=== PATIENT | male | born 1985 | race Caucasian/White ===

== ENCOUNTER 2021-09-13 00:05 | Emergency (ER) | payer OTHER ==
[2021-09-13] MEDS ORDERED: TORADOL 10 MG T10 MG PO (00:33)
== END 2021-09-13 00:58 | disposition home or self-care (01) ==
LOC: ER1 00:05
DX: R10.9 Unspecified abdominal pain (principal); R10.813 Right lower quadrant abdominal tenderness; R10.814 Left lower quadrant abdominal tenderness; E11.9 Type 2 diabetes mellitus without complications; Z88.8 Allergy status to other drugs, medicaments and biological substances; Z88.2 Allergy status to sulfonamides; Z88.1 Allergy status to other antibiotic agents
CPT/HCPCS: 96372; 99283; J1885

== ENCOUNTER 2021-09-13 08:48 | Inpatient (IN) | payer OTHER ==
[~2021-09-13] VITALS: Ht 182.9 cm; Wt 108.9 kg
[~2021-09-13 08:48] MED LIST: TORADOL 10 MG T10 MG PO
[2021-09-13 10:23] LABS: HEMOGLOBIN 12.9 gm/dl (14.0-17.5); RED BLOOD COUNT 4.38 M/UL (4.20-5.50); WHITE BLOOD COUNT 14.2 K/UL (4.5-11.0)
[2021-09-13 11:00] LABS: BUN/CREATININE RATIO 10 (0-10)
--- NOTE | 2021-09-14 17:16 | NUR ---
1715: NOTED UOP AT 125 (VOID) WITH IVF'S INFUSING AT 100 ML/HR. PATIENT DENIES ANY URGE TO VOID AT ALL. BLADDER SCAN PERFORMED WITH NO URINE NOTED IN URINARY BLADDER. DR LANGSTON UPDATED WITH NEW ORDER RECEIVED. NS BOLUS 1000ML OVER I HOUR TO INFUSE. WILL MONITOR FOR URINARY OUTPUT.
--- NOTE | 2021-09-15 09:06 | NUR ---
MULTIPLE ATTEMPTS TO CALL MRI FOR SCAN AT THIS TIME PER MD ORDER. NO ANSWER.
[2021-09-15] MEDS ORDERED: LOSARTAN POTASS25 MG PO (14:20)
[2021-09-15] MEDS ORDERED: IBUPROFEN PM C1 EACH PO (14:21)
[2021-09-15 15:20] LABS: HEMOGLOBIN 11.6 gm/dl (14.0-17.5); RED BLOOD COUNT 3.95 M/UL (4.20-5.50)
[2021-09-15 15:37] LABS: BUN/CREATININE RATIO 18 (0-10)
--- NOTE | 2021-09-15 20:46 | NUR ---
ON 09/13/21 WHEN PATIENT ARRIVED ON THE FLOOR, HE WAS VISIBLY UPSET AND ANXIOUS. PATIENT WALKED AND PACED THE HALLS THROUGHOUT THE ENTIRE NIGHT. PATIENT WOULD GO OUTSIDE MULTIPLE TIMES DURING THE NIGHT. WITNESSED BY ZAIN THURSTON AND LUCHO DIMAS. PATIENT DID NOT REPORT ANY NUMBNESS OR TINGLING DURING THIS SHIFT.
--- NOTE | 2021-09-15 20:56 | NUR ---
CALLED DOCTOR GARCIA ON 09/14/21 AT 0030 TO INFORM HIM THAT THE PATIENT WAS THREATENING TO LEAVE AMA UNLESS WE GAVE HIM SOMEHTING MORE FOR THE PAIN. AT THIS TIME, HE WAS ORDERED 1 MG OF DILAUDID Q2H PRN. DR. GARCIA GAVE NEW ORDER FOR 2MG OF DILAUDID Q2H PRN.
[2021-09-16 04:18] LABS: HEMOGLOBIN 10.9 gm/dl (14.0-17.5); RED BLOOD COUNT 3.74 M/UL (4.20-5.50); WHITE BLOOD COUNT 13.3 K/UL (4.5-11.0)
[2021-09-16 04:44] LABS: BUN/CREATININE RATIO 25 (0-10)
[2021-09-17 04:08] LABS: HIV AB/P24 AG SCREEN Non Reactive (Non Reactive)
[2021-09-17 05:10] LABS: HEMOGLOBIN 9.3 gm/dl (14.0-17.5); WHITE BLOOD COUNT 10.1 K/UL (4.5-11.0)
[2021-09-17 05:23] LABS: RED BLOOD COUNT 3.23 M/UL (4.20-5.50)
[2021-09-17 05:45] LABS: BUN/CREATININE RATIO 19 (0-10)
[2021-09-17 07:10] LABS: RPR Non Reactive (Non Reactive)
[2021-09-17 08:14] LABS: HBSAG SCREEN Negative (Negative); HEP B CORE AB, TOT Negative (Negative); HEP C VIRUS AB <0.1 (0.0-0.9)
[2021-09-17 20:46] LABS: BORDETELLA PARAPERTUSSIS Not Detected (Not Detectd); BORDETELLA PERTUSSIS Not Detected (Not Detectd); CHLAMYDIA PNEUMONIAE Not Detected (Not Detectd); CORONAVIRUS HKU1 Not Detected (Not Detectd); CORONAVIRUS NL63 Not Detected (Not Detectd); CORONAVIRUS OC43 Not Detected (Not Detectd); CORONOAVIRUS 229E Not Detected (Not Detectd); HUMAN METAPNEUMOVIRUS Not Detected (Not Detectd); HUMAN RHINOVIRUS/ENTEROVIRUS Not Detected (Not Detectd); INFLUENZA A Not Detected (Not Detectd); INFLUENZA B Not Detected (Not Detectd); MYCOPLASMA PNEUMONIAE Not Detected (Not Detectd); PARAINFLUENZA VIRUS 1 Not Detected (Not Detectd); PARAINFLUENZA VIRUS 2 Not Detected (Not Detectd); PARAINFLUENZA VIRUS 3 Not Detected (Not Detectd); PARAINFLUENZA VIRUS 4 Not Detected (Not Detectd); RESPIRATORY SYNCYTIAL VIRUS Not Detected (Not Detectd)
[2021-09-17 21:50] LABS: SARS-CoV-2 NOT DETECTED (Not Detectd)
[2021-09-18 04:49] LABS: HEMOGLOBIN 9.2 gm/dl (14.0-17.5); RED BLOOD COUNT 3.2 M/UL (4.20-5.50); WHITE BLOOD COUNT 10.6 K/UL (4.5-11.0)
[2021-09-18 05:29] LABS: BUN/CREATININE RATIO 15 (0-10)
[2021-09-19 07:15] LABS: HEMOGLOBIN 9.3 gm/dl (14.0-17.5); RED BLOOD COUNT 3.21 M/UL (4.20-5.50); WHITE BLOOD COUNT 10.7 K/UL (4.5-11.0)
[2021-09-19 07:32] LABS: BUN/CREATININE RATIO 12 (0-10)
[2021-09-20 05:35] LABS: HEMOGLOBIN 9.5 gm/dl (14.0-17.5); RED BLOOD COUNT 3.47 M/UL (4.20-5.50)
[2021-09-20 05:57] LABS: BUN/CREATININE RATIO 12 (0-10)
[2021-09-21 07:21] LABS: HEMOGLOBIN 10.2 gm/dl (14.0-17.5); RED BLOOD COUNT 3.6 M/UL (4.20-5.50); WHITE BLOOD COUNT 13.7 K/UL (4.5-11.0)
[2021-09-21 07:55] LABS: BUN/CREATININE RATIO 15 (0-10)
[2021-09-22 06:55] LABS: HEMOGLOBIN 10.1 gm/dl (14.0-17.5); RED BLOOD COUNT 3.63 M/UL (4.20-5.50); WHITE BLOOD COUNT 15.1 K/UL (4.5-11.0)
[2021-09-22 07:29] LABS: BUN/CREATININE RATIO 22 (0-10)
--- NOTE | 2021-09-22 14:47 | NUR ---
LATE ENTRY FOR 09/15/21 @0830 DURING MORNING SHIFT ASSESSMENT I HAD A DISCUSSION ABOUT DRUG ABUSE AND DURING THE CONVERSATION HE ADMITTED THAT HE HAD USED IV DRUGS SPECIFICALLY SUBOXONE APPROXIMATLEY 1 WEEK PRIOR TO ADMISSION. PATIENT NOTED TO HAVE BRUISNG AND TRACK PELAEZ IN THE RAC AREA.
[2021-09-23 04:19] LABS: HEMOGLOBIN 9.2 gm/dl (14.0-17.5); WHITE BLOOD COUNT 16.3 K/UL (4.5-11.0)
[2021-09-23 04:21] LABS: RED BLOOD COUNT 3.23 M/UL (4.20-5.50)
[2021-09-23 04:43] LABS: BUN/CREATININE RATIO 22 (0-10)
--- NOTE | 2021-09-23 16:26 | NUR ---
1500 Patient able to get up in wheelchair with help of PT. Able to self-propel in hallway. After being up for awhile, patient placed back in bed with ta lift. Patient had large bowel movement afterwards.
[2021-09-24 05:48] LABS: HEMOGLOBIN 9.2 gm/dl (14.0-17.5); RED BLOOD COUNT 3.37 M/UL (4.20-5.50); WHITE BLOOD COUNT 13.6 K/UL (4.5-11.0)
[2021-09-24 06:10] LABS: BUN/CREATININE RATIO 23 (0-10)
[2021-09-25 05:23] LABS: HEMOGLOBIN 9.8 gm/dl (14.0-17.5); RED BLOOD COUNT 3.51 M/UL (4.20-5.50); WHITE BLOOD COUNT 14.2 K/UL (4.5-11.0)
[2021-09-25 05:40] LABS: BUN/CREATININE RATIO 19 (0-10)
[2021-09-26 04:07] LABS: HEMOGLOBIN 10.1 gm/dl (14.0-17.5); RED BLOOD COUNT 3.6 M/UL (4.20-5.50); WHITE BLOOD COUNT 13.9 K/UL (4.5-11.0)
[2021-09-26 04:30] LABS: BUN/CREATININE RATIO 16 (0-10)
[2021-09-27 03:45] LABS: RED BLOOD COUNT 3.53 M/UL (4.20-5.50); WHITE BLOOD COUNT 11.1 K/UL (4.5-11.0)
[2021-09-27 04:03] LABS: BUN/CREATININE RATIO 19 (0-10)
[2021-10-06 04:16] LABS: BUN/CREATININE RATIO 14 (0-10)
[2021-10-07 04:08] LABS: HEMOGLOBIN 10.6 gm/dl (14.0-17.5); RED BLOOD COUNT 3.8 M/UL (4.20-5.50); WHITE BLOOD COUNT 8.4 K/UL (4.5-11.0)
[2021-10-07 04:11] LABS: BUN/CREATININE RATIO 19 (0-10)
--- NOTE | 2021-10-07 16:01 | NUR ---
Dr Fan called pt's island dressing to his back is causing some redness/heat rash issues. also makes 3 weeks out with stitches in place. Dr Fan ordered remove stictches, clean wound with alcohol, betadine and apply steri strips. pt tolerated well. pT ENCOURAGED TO SIT AT BEDSIDE WITH ASSISTANCE FOR MEALS TOLERATED.
[2021-10-10 07:45] LABS: BUN/CREATININE RATIO 11 (0-10)
[2021-10-10 07:46] LABS: HEMOGLOBIN 10.9 gm/dl (14.0-17.5); RED BLOOD COUNT 3.92 M/UL (4.20-5.50)
[2021-10-11 06:40] LABS: WHITE BLOOD COUNT 6.7 K/UL (4.5-11.0)
[2021-10-11 07:09] LABS: BUN/CREATININE RATIO 14 (0-10)
[2021-10-15 04:11] LABS: HEMOGLOBIN 11.1 gm/dl (14.0-17.5); RED BLOOD COUNT 4.1 M/UL (4.20-5.50); WHITE BLOOD COUNT 7.3 K/UL (4.5-11.0)
[2021-10-15 04:20] LABS: BUN/CREATININE RATIO 13 (0-10)
[2021-10-19 06:36] LABS: HEMOGLOBIN 11.7 gm/dl (14.0-17.5); RED BLOOD COUNT 4.38 M/UL (4.20-5.50); WHITE BLOOD COUNT 6.7 K/UL (4.5-11.0)
[2021-10-19 07:04] LABS: BUN/CREATININE RATIO 17 (0-10)
--- NOTE | 2021-10-19 11:19 | NUR ---
OLD FENTANYL PATCH WASTED WITH NIEVES JUDD RN.
[2021-10-20 06:02] LABS: HEMOGLOBIN 11.5 gm/dl (14.0-17.5); RED BLOOD COUNT 4.3 M/UL (4.20-5.50); WHITE BLOOD COUNT 6.7 K/UL (4.5-11.0)
[2021-10-20 06:26] LABS: BUN/CREATININE RATIO 18 (0-10)
[2021-10-21 09:32] LABS: HEMOGLOBIN 12.6 gm/dl (14.0-17.5); RED BLOOD COUNT 4.69 M/UL (4.20-5.50); WHITE BLOOD COUNT 5.9 K/UL (4.5-11.0)
[2021-10-21 09:50] LABS: BUN/CREATININE RATIO 17 (0-10)
[2021-10-21] MEDS ORDERED: PROTONIX 40 MG40 M1 PO (12:37)
[2021-10-21] MEDS ORDERED: ALPRAZOLAM0.5 MG PO (12:37)
[2021-10-21] MEDS ORDERED: MI-ACID80 MG PO (12:37)
[2021-10-21] MEDS ORDERED: ZOLPIDEM TARTRAT5 MG PO (12:37)
[2021-10-21] MEDS ORDERED: POLYETHYLENE GL17 GM PO (12:37)
[2021-10-21] MEDS ORDERED: FENTANYL1 EAC3 TOP (12:37)
[2021-10-21] MEDS ORDERED: MELATONIN3 MG PO (12:37)
[2021-10-21] MEDS ORDERED: ONDANSETRON4 MG/2 M2 IV (12:37)
[2021-10-21] MEDS ORDERED: NICOTINE PATCH1 EAC2 TOP (12:37)
[2021-10-21] MEDS ORDERED: BANOPHEN25 MG PO (12:37)
[2021-10-21] MEDS ORDERED: COZAAR 25MG TAB25 MG PO (12:37)
[2021-10-21] MEDS ORDERED: LOPRESSOR 25 MG25 MG NG (12:37)
[2021-10-21] MEDS ORDERED: MOVANTIK25 MG PO (12:37)
[2021-10-21] MEDS ORDERED: CHRONULAC20 GM/30 M PO (12:37)
[2021-10-21] MEDS ORDERED: ENOXAPARIN40 MG/0.4 SC (12:37)
[2021-10-21] MEDS ORDERED: DOCUSATE SODIU100 MG PO (12:37)
[2021-10-21] MEDS ORDERED: DILAUDID 0.5 MG/0.5 IVP (12:37)
[2021-10-21] MEDS ORDERED: HYDROCODON-ACE1 EAC4 PO (12:37)
[2021-10-21] MEDS ORDERED: ACETAMINOPHEN325 MG PO (12:37)
[2021-10-21] MEDS ORDERED: SENNA LAX8.6 MG PO (12:37)
[2021-10-21] MEDS ORDERED: BISACODYL10 MG PR (12:37)
[2021-10-21] MEDS ORDERED: MYCOSTATIN CREA15 GM TOP (12:37)
== END 2021-10-21 18:52 | DRG 853 ==
LOC: ER1 08:48 → M/S 16:54 → CDU 16:54 → M/S 19:49 → CCU 09-15 13:32 → MED SURG 4 09-15 13:32 → CCU 09-16 00:22 → MED SURG 4 09-22 23:15
PROVIDERS: Internal Medicine; Internal Medicine Critical Care Medicine; Internal Medicine Infectious Disease; Nurse Practitioner Family; Orthopaedic Surgery; Physician Assistant Medical; ADMIT Surgery
PROC: 3E03329 Introduction of Other Anti-infective into Peripheral Vein, Percutaneous Approach (ICD-10-PCS; 2021-09-15)
PROC: 00BX0ZZ Excision of Thoracic Spinal Cord, Open Approach (ICD-10-PCS; principal; 2021-09-16)
PROC: 0RG607J Fusion of Thoracic Vertebral Joint with Autologous Tissue Substitute, Posterior Approach, Anterior Column, Open Approach (ICD-10-PCS; 2021-09-16)
PROC: 01N80ZZ Release Thoracic Nerve, Open Approach (ICD-10-PCS; 2021-09-16)
PROC: 5A1945Z Respiratory Ventilation, 24-96 Consecutive Hours (ICD-10-PCS; 2021-09-16)
PROC: 5A0935A Assistance with Respiratory Ventilation, Less than 24 Consecutive Hours, High Flow/Velocity Cannula (ICD-10-PCS; 2021-09-17)
PROC: 5A09357 Assistance with Respiratory Ventilation, Less than 24 Consecutive Hours, Continuous Positive Airway Pressure (ICD-10-PCS; 2021-09-17)
PROC: 5A0935A Assistance with Respiratory Ventilation, Less than 24 Consecutive Hours, High Flow/Velocity Cannula (ICD-10-PCS; 2021-09-18)
PROC: 5A09357 Assistance with Respiratory Ventilation, Less than 24 Consecutive Hours, Continuous Positive Airway Pressure (ICD-10-PCS; 2021-09-18)
PROC: 5A09357 Assistance with Respiratory Ventilation, Less than 24 Consecutive Hours, Continuous Positive Airway Pressure (ICD-10-PCS; 2021-09-20)
PROC: 0J9K0ZZ Drainage of Left Hand Subcutaneous Tissue and Fascia, Open Approach (ICD-10-PCS; 2021-09-20)
PROC: 5A09357 Assistance with Respiratory Ventilation, Less than 24 Consecutive Hours, Continuous Positive Airway Pressure (ICD-10-PCS; 2021-09-21)
PROC: B24BZZZ Ultrasonography of Heart with Aorta (ICD-10-PCS; 2021-09-23)
PROC: 02HV33Z Insertion of Infusion Device into Superior Vena Cava, Percutaneous Approach (ICD-10-PCS; 2021-09-23)
PROC: B548ZZA Ultrasonography of Superior Vena Cava, Guidance (ICD-10-PCS; 2021-09-23)
DX: A41.01 Sepsis due to Methicillin susceptible Staphylococcus aureus (principal); G06.1 Intraspinal abscess and granuloma; J96.01 Acute respiratory failure with hypoxia; J69.0 Pneumonitis due to inhalation of food and vomit; Z20.822 Contact with and (suspected) exposure to COVID-19; F11.20 Opioid dependence, uncomplicated; J98.11 Atelectasis; K81.0 Acute cholecystitis; M62.82 Rhabdomyolysis; G95.89 Other specified diseases of spinal cord; G82.20 Paraplegia, unspecified; G83.9 Paralytic syndrome, unspecified; K76.0 Fatty (change of) liver, not elsewhere classified; M48.02 Spinal stenosis, cervical region; M46.54 Other infective spondylopathies, thoracic region; K21.9 Gastro-esophageal reflux disease without esophagitis; G47.33 Obstructive sleep apnea (adult) (pediatric); I07.1 Rheumatic tricuspid insufficiency; I10 Essential (primary) hypertension; E66.01 Morbid (severe) obesity due to excess calories; F17.210 Nicotine dependence, cigarettes, uncomplicated; D64.9 Anemia, unspecified; F17.290 Nicotine dependence, other tobacco product, uncomplicated; Z90.81 Acquired absence of spleen; K59.00 Constipation, unspecified; Z87.828 Personal history of other (healed) physical injury and trauma; Z82.3 Family history of stroke; Z68.32 Body mass index [BMI] 32.0-32.9, adult; Z98.890 Other specified postprocedural states
CPT/HCPCS: ECHO; 36415; 36600; 71045; 72040; 72070; 72072; 72100; 72128; 72141; 72146; 72148; 73130; 74018; 76000; 76705; 80048; 80053; 80202; 81001; 82150; 82436; 82550; 82553; 82570; 82803; 83605; 83690; 83874; 84100; 84133; 84300; 84484; 85025; 85027; 85610; 85652; 86140; 86592; 86704; 86706; 86708; 86803; 86850; 86900; 86901; 87040; 87070; 87077; 87186; 87205; 87340; 87389; 87633; 93005; 93306; 93970; 94002; 94003; 94640; 94660; 94664; 94760; 96374; 96375; 96376; 97110; 97110-GP-CQ; 97162; 97166; 97530; 97530-GP-CQ; 99285; C1713; C1751; C1762; C9113; G0378; J0690; J0878; J1100; J1170; J1200; J1650; J1885; J2001; J2020; J2185; J2212; J2250; J2270; J2405; J2704; J2930; J3010; J3260; J3370; J7030; J7040; J7070; J7120; Q9967; U0002

== ENCOUNTER 2021-12-09 16:25 | Emergency (ER) | payer OTHER ==
[~2021-12-09 16:25] MED LIST changes: +ACETAMINOPHEN325 MG PO; +ALPRAZOLAM0.5 MG PO; +BANOPHEN25 MG PO; +BISACODYL10 MG PR; +CHRONULAC20 GM/30 M PO; +COZAAR 25MG TAB25 MG PO; +DILAUDID 0.5 MG/0.5 IVP; +DOCUSATE SODIU100 MG PO; +ENOXAPARIN40 MG/0.4 SC; +FENTANYL1 EAC3 TOP; +HYDROCODON-ACE1 EAC4 PO; +IBUPROFEN PM C1 EACH PO; +LOPRESSOR 25 MG25 MG NG; +LOSARTAN POTASS25 MG PO; +MELATONIN3 MG PO; +MI-ACID80 MG PO; +MOVANTIK25 MG PO; +MYCOSTATIN CREA15 GM TOP; +NICOTINE PATCH1 EAC2 TOP; +ONDANSETRON4 MG/2 M2 IV; +POLYETHYLENE GL17 GM PO; +PROTONIX 40 MG40 M1 PO; +SENNA LAX8.6 MG PO; +ZOLPIDEM TARTRAT5 MG PO
[2021-12-09 18:54] LABS: HEMOGLOBIN 12.2 gm/dl (14.0-17.5); RED BLOOD COUNT 4.51 M/UL (4.20-5.50); WHITE BLOOD COUNT 17.1 K/UL (4.5-11.0)
[2021-12-09 19:54] LABS: BUN/CREATININE RATIO 16 (0-10)
[2021-12-09] MEDS ORDERED: KEFLEX CAP 250250 MG PO (21:26)
[2021-12-09] MEDS ORDERED: LOPRESSOR 25 MG25 MG PO (21:35)
== END 2021-12-09 21:44 | disposition home or self-care (01) ==
LOC: ER1 16:25
PROVIDERS: Family Medicine
DX: N30.90 Cystitis, unspecified without hematuria (principal); Z20.822 Contact with and (suspected) exposure to COVID-19; I10 Essential (primary) hypertension; F17.200 Nicotine dependence, unspecified, uncomplicated
CPT/HCPCS: 0240U; 71045; 80053; 81001; 83605; 83735; 84100; 85025; 85610; 86140; 87040; 87077; 87086; 87186; 93005; 99284